=== PATIENT | male | born 1990 | race Caucasian/White ===

== ENCOUNTER 2016-07-02 01:52 | Emergency (ER) | payer MEDICAID ==
--- NOTE | 2016-07-02 03:02 | EDM.PDOC ---
ED HISTORY OF PRESENT ILLNESS - General Chief Complaint: Chest Pain Stated Complaint: [facility] Time Seen by Provider: 07/02/16 02:39 Source: Reports: Patient, Old records, RN notes reviewed History Limitations: Reports: No limitations - History of Present Illness INITIAL COMMENTS - FREE TEXT/NARRATIVE: 25-year-old gentleman presents emergency department for a complaint of chest pain, he said this pain on and off for the last year and half he has a known history of testicular cancer status post removal, he does follow with urology underwent CT scan of the abdomen and chest x-ray yesterday CT scan of the abdomen was negative however the chest x-ray question whether there is a nodule around rib 4-5. He states the chest pain is primarily located in the axilla region on the left side he has had episodes where he's been very short of breath extreme chest pain and nausea this now has resolved - Related Data Allergies/ADRs: Allergies Allergy/AdvReac Type Severity Reaction Status Date / Time No Known Allergies Allergy Verified 07/02/16 04:53 Home Meds: Home Meds Albuterol [Ventolin HFA] 2 puff IN ASDIRECTED PRN 02/02/16 [History] Past Medical History HEENT History: Reports: Allergic rhinitis, Otitis media Cardiovascular History: Reports: Other (see below) Other Cardiovascular History: past chest pain Respiratory History: Reports: Asthma, Bronchitis, recurrent, Pneumonia, recurrent Gastrointestinal History: Reports: GERD Genitourinary History: Reports: Other (see below) Other Genitourinary History: pt is scheduled for a left testicular biopsy/ removal on 02/14/2016. Left testicular has shrunk in size. Musculoskeletal History: Reports: Back pain, chronic, Other (see below) Other Musculoskeletal History: chronic right shoulder blade pain. No known cause Psychiatric History: Reports: ADHD, Anxiety, Depression, Panic attack, PTSD Oncologic (Cancer) History: Reports: Other (see below) Other Oncologic History: testicle - Past Surgical History Oncologic Surgical History: Reports: Other (see below) Other Oncologic Surgeries/Procedures: testicle removal Social & Family History - Family History Cardiac: Reports: CAD (Mother age 29 myocardial infarction) - Tobacco Use Smoking Status *Q: Current Every Day Smoker Years of Tobacco use: 10 Packs/Tins Daily: 1 Used Tobacco, but Quit: No Second Hand Smoke Exposure: Yes - Caffeine Use Caffeine Use: Reports: None - Recreational Drug Use Recreational Drug Use: No Drug Use in Last 12 Months: Yes Recreational Drug Type: Reports: Marijuana/Hashish Recreational Drug Use Frequency: Binges ED ROS GENERAL - Review of Systems Review Of Systems: See Below Constitutional: Reports: no symptoms HEENT: Reports: No symptoms Respiratory: Reports: Shortness of Breath Cardiovascular: Reports: Chest pain GI/Abdominal: Reports: Nausea : Reports: no symptoms Musculoskeletal: Reports: no symptoms Skin: Reports: no symptoms Neurological: Reports: No Symptoms Psychiatric: Reports: No symptoms ED EXAM, GENERAL - Physical Exam Exam: See Below Exam Limited By: No limitations General Appearance: alert, WD/WN, no apparent distress Eye Exam: bilateral eye: normal inspection Neck: normal inspection, supple, non-tender, full range of motion Respiratory/Chest: no respiratory distress, lungs clear, normal breath sounds, no accessory muscle use Cardiovascular: regular rate, rhythm, no murmur GI/Abdominal: soft, non tender Course - Vital Signs Last Recorded V/S: Last Vital Signs Temp 97.9 F 07/02/16 03:50 Pulse 69 07/02/16 02:09 Resp 16 07/02/16 03:50 BP 129/52 L 07/02/16 03:50 Pulse Ox 97 07/02/16 03:50 - Orders/Labs/Meds Orders: Active Orders 24 hr Category Date Time Status Cardiac Monitoring [RC] .As Directed Care 07/02/16 02:54 Active EKG Documentation Completion [RC] ASDIRECTED Care 07/02/16 02:55 Active Chest wo Cont [CT] Stat Exams 07/02/16 02:56 Taken EKG 12 Lead [EK] Stat Ther 07/02/16 02:55 Ordered Labs: Laboratory Tests 07/02/16 07/02/16 Range/Units 03:03 03:03 WBC 8.2 (4.5-11.0) K/uL RBC 5.64 (4.30-5.90) M/uL Hgb 16.5 H (12.0-15.0) g/dL Hct 48.1 (40.0-54.0) % MCV 85 (80-98) fL MCH 29 (27-31) pg MCHC 34 (32-36) % Plt Count 246 (150-400) K/uL Neut % (Auto) 49 (36-66) % Lymph % (Auto) 33 (24-44) % [place] % (Auto) 12 H (2-6) % Eos % (Auto) 5 H (2-4) % Baso % (Auto) 1 (0-1) % Sodium 144 (140-148) mmol/L Potassium 4.8 (3.6-5.2) mmol/L Chloride 105 (100-108) mmol/L Carbon Dioxide 30 (21-32) mmol/L Anion Gap 8.9 (5.0-14.0) mmol/L BUN 15 (7-18) mg/dL Creatinine 1.1 (0.8-1.3) mg/dL Est Cr Clr Drug Dosing 109.62 mL/min Estimated GFR (MDRD) > 60 (>60) Glucose 82 (74-106) mg/dL Calcium 8.7 (8.5-10.1) mg/dL Total Bilirubin 0.4 (0.2-1.0) mg/dL AST 24 (15-37) U/L ALT 48 (12-78) U/L Alkaline Phosphatase 64 (46-116) U/L CK-MB (CK-2) 0.3 (0-3.6) mg/mL Troponin I < 0.017 (0.000-0.056) ng/mL Total Protein 7.1 (6.4-8.2) g/dL Albumin 4.0 (3.4-5.0) g/dL Globulin 3.1 (2.3-3.5) g/dL Albumin/Globulin Ratio 1.3 (1.2-2.2) Departure - Departure Time of Disposition: 04:54 Disposition: Home, Self-Care 01 Condition: good (None ovoid be tried for sleep) Clinical Impression: Panic attack Forms: ED Department Discharge Additional Instructions: Try the Ativan as needed for chest pain and panic attack symptoms, keep your followup appointment with urology on Sunday - My Orders Last 24 Hours: My Active Orders 07/02/16 02:54 Cardiac Monitoring [RC] .As Directed 07/02/16 02:55 EKG Documentation Completion [RC] ASDIRECTED EKG 12 Lead [EK] Stat 07/02/16 02:56 Chest wo Cont [CT] Stat - Assessment/Plan Last 24 Hours: My Active Orders 07/02/16 02:54 Cardiac Monitoring [RC] .As Directed 07/02/16 02:55 EKG Documentation Completion [RC] ASDIRECTED EKG 12 Lead [EK] Stat 07/02/16 02:56 Chest wo Cont [CT] Stat Plan: Assessment Acuity = acute Site and laterality = panic attack in patient's known history of testicular cancer Etiology = generalized anxiety disorder Manifestations = none Location of injury = home Lab values = CBC, CMP, troponin all negative EKG demonstrates a respiratory sinus arrhythmia, CT scan of chest is negative Plan I did review lab work and CT scan results and the plan is to read a prescription for [facility] 3-5 days for reevaluation Patient was in agreement with the plan all questions were answered, they were instructed to return to the emergency department or call for worsening symptoms. This note was dictated using [employer] voice recognition software please call with any questions.
[2016-07-02 04:55] VITALS: BP 121/75
== END 2016-07-02 05:06 | disposition home or self-care (01) ==
LOC: JP.ED 01:52
DX: F41.0 Panic disorder [episodic paroxysmal anxiety] (principal); J45.909 Unspecified asthma, uncomplicated; F17.210 Nicotine dependence, cigarettes, uncomplicated; Z98.890 Other specified postprocedural states
CPT/HCPCS: 36415; 71250; 80053; 82553; 84484; 85025; 93005; 99285-25